=== PATIENT | female | born 1950 | race Native Hawaiian/Other Pacific Islander ===

== ENCOUNTER 2019-11-02 10:10 | Emergency (ER) | payer OTHER ==
[~2019-11-02] VITALS: Ht 162.6 cm; Wt 81.6 kg
[2019-11-02 10:20] VITALS: TEMP 97.7
[2019-11-02 11:06] LABS: PLATELET COUNT 197 K/uL (152-353)
[2019-11-02 11:20] LABS: PARTIAL THROMBOPLASTIN TIME 24.3 SECONDS (24.5-33.6)
[2019-11-02 11:21] LABS: POTASSIUM 3.4 mmol/L (3.6-5.2); SODIUM 133 mmol/L (136-145)
[2019-11-02 12:08] VITALS: BP 126/76
== END 2019-11-02 12:27 | disposition home or self-care (01) ==
LOC: ED 10:10
PROVIDERS: Hospitalist
DX: J40 Bronchitis, not specified as acute or chronic (principal); J06.9 Acute upper respiratory infection, unspecified; R06.02 Shortness of breath; F17.210 Nicotine dependence, cigarettes, uncomplicated
CPT/HCPCS: 36415; 80053; 82550; 82553; 83880; 84484; 85027; 85610; 85730; 93005; 99283

== ENCOUNTER 2021-04-25 08:21 | Outpatient (CLI) | payer OTHER | END 2021-04-25 19:20 | disposition home or self-care (01) | LOC: CT 08:21 | PROVIDERS: ATTEND Internal Medicine Cardiovascular Disease | DX: R07.9 Chest pain, unspecified (principal); F17.210 Nicotine dependence, cigarettes, uncomplicated ==

== ENCOUNTER 2022-01-04 07:45 | Emergency (ER) | payer OTHER ==
[~2022-01-04] VITALS: Ht 162.6 cm; Wt 93.4 kg
[2022-01-04 07:51] VITALS: TEMP 97.3
[2022-01-04 08:40] VITALS: BP 130/68
== END 2022-01-04 08:41 | disposition home or self-care (01) ==
LOC: ED 07:45
DX: J01.80 Other acute sinusitis (principal); J20.9 Acute bronchitis, unspecified
CPT/HCPCS: 99281

== ENCOUNTER 2022-05-24 10:08 | Outpatient (CLI) | payer OTHER ==
[2022-05-24 10:43] LABS: POTASSIUM 4.7 mmol/L (3.6-5.2)
== END 2022-05-24 19:59 | disposition home or self-care (01) ==
LOC: LABW 10:08
PROVIDERS: ATTEND Physician Assistant
DX: I48.91 Unspecified atrial fibrillation (principal); Z79.899 Other long term (current) drug therapy; R06.02 Shortness of breath
CPT/HCPCS: 36415; 80048; 80162; 83880

== ENCOUNTER 2022-06-15 08:57 | Outpatient (CLI) | payer OTHER | END 2022-06-15 20:55 | disposition home or self-care (01) | LOC: RESP 08:57 | PROVIDERS: ATTEND Physician Assistant | DX: R06.02 Shortness of breath (principal) ==